=== PATIENT | male | born 1960 | race Caucasian/White ===

== ENCOUNTER 2020-06-01 08:37 | Day surgery (SDC) | payer BC, OTHER ==
[~2020-06-01] VITALS: Ht 170.2 cm; Wt 73.9 kg
[~2020-06-01 08:37] MED LIST: ASA81BEC PO; FISH OIL 1,2001 EAC4 PO; FLOMAX0.4 MG PO; MULTIVITAMINS PO; PROBIOTIC1 EAC7 PO; PROSCAR 5MG TABL5 M1 PO
[2020-06-01 09:21] VITALS: BP 114/72
[2020-06-01 11:32] VITALS: BP 114/72
--- NOTE | 2020-06-06 13:10 | O ---
[facility] [place] [address] OPERATIVE REPORT Name: LILIA GOODWIN Room #: DEP [facility] [place].#: [id number] Admission: 06/01/20 Attend Phys: Josh Malone Discharge: 06/01/20 Date of : 58 Report #: [id number] THIS REPORT FOR: cc: Jarred Norris MD, Darren E. MD VanDenBerghe, Gregory R. MD ~ CC: Jarred Yap DATE OF SERVICE: 06/01/2020 PREOPERATIVE DIAGNOSES: Left knee pain, effusion, lateral meniscus tear, lateral compartment chondromalacia. 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 PROCEDURES PERFORMED: Left knee arthroscopy, partial medial and lateral meniscectomies, tricompartmental chondroplasty. SURGEON: Josh Munoz MD METER RECORD CLERK: None. ANESTHESIA: General. FLUIDS: 500 mL crystalloid. ESTIMATED BLOOD LOSS: Approximately 5 mL. TOURNIQUET TIME: Approximately 33 minutes at 300 mmHg. DESCRIPTION OF PROCEDURE: After proper identification of the patient and operative site in preoperative holding area, the operative site was signed by myself. Prophylactic antibiotics given. The patient elected to receive a general anesthetic after reviewing the risks, benefits, alternatives and potential complications with Anesthesia. The patient was brought back to the operative suite after induction of satisfactory general anesthesia per LMA. The left knee was examined. Mild effusion was noted. Knee was ligamentously stable, had comparable range of motion as compared to the preoperative assessment. Tourniquet was applied to the operative thigh. The limb was then sterilely prepped and draped in the usual manner, elevated and exsanguinated with an Esmarch. Tourniquet was inflated to 300 mmHg. Lateral post was [address] [address] OPERATIVE REPORT Name: LILIA GOODWIN Room #: DEP [facility] [place].#: [id number] Admission: 06/01/20 Attend Phys: Josh Malone Discharge: 06/01/20 Date of : 58 Report #: [id number] utilized to help desk support in visualization of the medial compartment. Superior medial portal was created. Joint was inflated by gravity inflow with normal saline. An anterolateral and then an anteromedial portal were created using a spinal needle for localization. Examination of the suprapatellar pouch revealed some mild fibrillation on the undersurface of the patella. This was more superficial in nature and carefully debrided with motorized shaver. Trochlear surface appeared intact. Examination of the medial compartment revealed some scoring of the medial femoral condyle with its more medial half demonstrating ____ throughout a full range of motion and some thinning of the chondral tissue to what appeared to be approximately the half of the chondral thickness. There was a tear of the posterior horn of the medial meniscus, which was debrided with combination of hand and motorized instrumentation back to a stable peripheral rim. The remaining meniscus was stable. Examination of the intercondylar notch revealed some spurring off the lateral femoral condyle, some mild synovitis, but the ACL and the PCL were otherwise intact. Examination of the lateral compartment revealed a complex tear of the lateral meniscus with a displaced flap tear of the posterior horn, this tear also extended into the mid body. Combination of hand and motorized instrumentation was used to perform a partial lateral meniscectomy. Some fibrillation fraying and small loose chondral flaps were noted on the lateral tibial plateau and there was more extensive and diffuse chondromalacia of the lateral femoral condyle with a small area that appeared to be full thickness that was approximately 5 mm in width. The knee was thoroughly irrigated with normal saline. The remaining lateral meniscus was stable to probing. Portals closed with simple nylon stitch. A 20 mL of 0.2% Naropin was injected to aid in postoperative pain control. Sterile compressive dressing was applied. The patient was awakened and transferred to the recovery room. <ELECTRONICALLY SIGNED> By: Josh Munoz MD 06/06/20 1310 [id number] Josh Munoz MD /nt
== END 2020-06-01 12:10 | disposition home or self-care (01) ==
LOC: OR 08:37 → TBA 08:38 → OR 10:28
PROVIDERS: ATTEND Orthopaedic Surgery Sports Medicine
DX: S83.272A Complex tear of lateral meniscus, current injury, left knee, initial encounter (principal); S83.242A Other tear of medial meniscus, current injury, left knee, initial encounter; M17.12 Unilateral primary osteoarthritis, left knee; M25.462 Effusion, left knee; M94.262 Chondromalacia, left knee; Z79.899 Other long term (current) drug therapy; X58.XXXA Exposure to other specified factors, initial encounter; Y93.89 Activity, other specified; Y92.89 Other specified places as the place of occurrence of the external cause; Y99.8 Other external cause status
CPT/HCPCS: 50010; 50101; 50405; 56526; 57103; 57180; 62110; 62900; 70005